=== PATIENT | female | born 1995 | race Caucasian/White ===

== ENCOUNTER 2024-12-01 13:06 | Emergency (ER) | payer OTHER, SELFPAY ==
[2024-12-01 13:14] VITALS: BP 112/74; PULSE 80; RESP 16; TEMP 36.3; O2SAT 99; BMI 18.0
--- NOTE | 2024-12-01 13:14 | ED.GENADULT ---
HPI - General Adult General Chief complaint: Recheck/Abnormal Lab/Rx Stated complaint: pt states potassium low ETOH withdrawal Time Seen by Provider: 12/01/24 14:20 Source: patient and other ([facility] ED record from 11/27/2024) Mode of arrival: ambulatory Limitations: no limitations History of Present Illness ED Provider: Dr. Ethan Sanchez HPI narrative: 29-year-old female with a past medical history of alcohol use disorder, anxiety, depression, asthma, 5 weeks presenting to the emergency room today for evaluation of alcohol withdrawal, nausea and vomiting. Patient states that a proximally 2 or 3 weeks prior to evaluation she developed nausea and vomiting and was having difficulty eating and drinking. Patient states she was drinking at least 6 beers per day but was unable to drink secondary to her symptoms. She did a home test and was positive. She was seen at [facility] Emergency Department on 11/27/2024 for alcohol withdrawal syndrome with a CIWA of 9 and was found to be 5 weeks on ultrasound. Patient's CIWA scale at that time was 9. She was treated for alcohol withdrawal and vomiting secondary to . Her potassium was 2.8 and this was repleted orally. She was also given Zofran for nausea and diazepam 10 minute IV for alcohol withdrawal.. She states she did feel better after leaving [facility] however she has continued to have nausea, vomiting, weakness, shakiness, sweats and dizziness. Patient states that yesterday she did drink 4 beers and 1 nip. She was discharged with a prescription for Zofran she states that this was not helping her nausea or vomiting. The patient does want to get help with your alcohol use disorder in his requesting evaluation for detox. Related Data Previous Rx's ?Medication ?Instructions ?Recorded diazepam 5 mg tablet (Valium) 5 mg PO TID For alcohol withdrawal 12/01/24 3 days #9 tabs diphenhydramine HCl 25 mg capsule 50 mg (2 x 25 mg) PO Q6H PRN 12/01/24 headache, nausea, vomiting #20 caps metoclopramide HCl 10 mg tablet 10 mg PO Q6H PRN nausea and 12/01/24 (Reglan) vomiting #14 tabs Allergies Allergy/AdvReac Type Severity Reaction Status Date / Time No Known Allergies Allergy Verified 12/01/24 13:16 Review of Systems Review of Systems: Yes all other systems are reviewed and are negative [facility] Past Medical History [facility] Narrative: Social history: The patient smokes 2-3 packs of cigarettes per day times 15 years, she has not been able to smoke x2 weeks. She states that normally she drinks it looks 6 beers per day and yesterday she drank 4 beers and 1 nips. She smokes marijuana 5 times a day but states she has not been able to smoke x2 weeks Social History Social History Advance Directives: No Advance Directives Information Provided: Yes Do you have a plan to hurt others: No Plan Physical Exam ED Vital Signs: Vital Signs - 24 hr 12/01/24 13:14 12/01/24 13:58 12/01/24 16:27 Temperature 97.3 F 98.2 F Pulse Rate 80 66 94 Respiratory Rate 16 16 13 Blood Pressure 112/74 109/60 103/65 Pulse Oximetry 99 99 100 Oxygen Delivery Method Room Air Room Air Room Air 12/01/24 18:00 Temperature 98.1 F Pulse Rate 73 Respiratory Rate 14 Blood Pressure 112/73 Pulse Oximetry 99 Oxygen Delivery Method Room Air BMI result Body Mass Index 18.0 Vital signs were normal. Exam: General: Awake, alert in no distress Head: Normocephalic, atraumatic EENT: PERRL, Lids normal, sclera normal, conjunctiva normal, nose normal , ears normal, throat without erythema or exudates Neck: Supple, no adenopathy Lung: breath sounds symmetric, no wheezing, rales or rhonchi Chest: symmetric movement, nontender Heart: regular rate and rhythm, normal S1, S2 no murmurs or rubs Abdomen: soft, mild to moderate epigastric tenderness, no suprapubic tenderness, nondistended, normal bowel sounds Back: no vertebral tenderness, no CVAT Extremities: no deformities, moves all extremities symmetrically Neuro: Awake, alert, oriented, normal speech, cranial nerves intact, moves all extremities symmetrically Psych: Pleasant, cooperative, appears to be anxious Course Course Course Narrative: This is a Rapid Medical Examination (RME) performed by Martín Molina PA-C in triage. Full HPI, ROS, assessment and treatment plan per primary provider in the Main ED. Hx: 29 yo F here w/ concerns of low potassium. seen at [facility] on Friday for etoh withdrawal - found out she was while there (approx 1 mo 1 wk), also found to have low potassium. discharged. f/u w/ PCP yesterday, told to come to ED for further management of low potassium. reports weakness and dizziness. admits to drinking 2 beers and 1 nip yesterday. vomiting, believes she is still withdrawing. typically drinks 6 beers a day. Plan: labs, ekg Medications Administered Discontinued Medications Generic Name Dose Route Start Last Admin Trade Name Norberto PRN Reason Stop Dose Admin Diazepam 5 mg 12/01/24 15:51 12/01/24 16:13 Diazepam 10 Mg/2 Ml Cartridge IVPUSH 12/01/24 15:52 5 mg STAT STA Administration Diphenhydramine HCl 50 mg 12/01/24 16:05 12/01/24 16:14 Diphenhydramine Hcl 50 Mg/Ml Vial IVPUSH 12/01/24 16:06 50 mg ONCE STA Administration Sodium Chloride 1,000 mls @ 999 mls/hr 12/01/24 15:51 12/01/24 17:15 Ns IV 12/01/24 16:51 Infused .Q1H1M STA Infusion Metoclopramide HCl 10 mg 12/01/24 16:05 12/01/24 16:14 Metoclopramide Hcl 10 Mg/2 Ml Vial IVPUSH 12/01/24 16:06 10 mg ONCE STA Administration Medical Decision Making Medical Decision Making MDM Narrative: 29-year-old female with a past medical history of alcohol use disorder, anxiety, depression, asthma, 5 weeks presenting to the emergency room today for evaluation of alcohol withdrawal, nausea and vomiting. Patient states that a proximally 2 or 3 weeks prior to evaluation she developed nausea and vomiting and was having difficulty eating and drinking. Patient states she was drinking at least 6 beers per day but was unable to drink secondary to her symptoms. She did a home test and was positive. She was seen at [facility] Emergency Department on 11/27/2024 for alcohol withdrawal syndrome with a CIWA of 9 and was found to be 5 weeks on ultrasound. Patient's CIWA scale at that time was 9. She was treated for alcohol withdrawal and vomiting secondary to . Her potassium was 2.8 and this was repleted orally. She was also given Zofran for nausea and diazepam 10 minute IV for alcohol withdrawal.. She states she did feel better after leaving [facility] however she has continued to have nausea, vomiting, weakness, shakiness, sweats and dizziness. Patient states that yesterday she did drink 4 beers and 1 nip. She was discharged with a prescription for Zofran she states that this was not helping her nausea or vomiting. The patient does want to get help with your alcohol use disorder in his requesting evaluation for detox. Vital signs were normal. Exam revealed suprapubic tenderness and anxiety otherwise was unremarkable. Differential diagnosis: ?Includes but is not limited to alcohol withdrawal, vomiting related to , anxiety, anemia, electrolyte abnormalities Course: 16:08 My independent interpretation patient's laboratory evaluation is as follows: CBC was normal. Potassium was normal at 3.5. Chloride elevated 109. Bicarb low 19-most likely secondary to her vomiting. LFTs were normal. Lipase pending. Quantitative beta-hCG was appropriately elevated at 48,932 eight thousand nine hundred thirty two. Patient's CIWA score was 11-(mildly anxious, slight increased agitation, very mild headache, nausea with dry heaves). I think that most of these symptoms are probably more related to her nausea and vomiting secondary to but may also be related some mild alcohol withdrawal. Therefore I ordered diazepam 5 mg IV for withdrawal. I also ordered Reglan 10 mg and Benadryl 25 mg IV for her nausea and vomiting. She will speak treated with normal saline x1 L. 18:44 Patient is feeling better after the above treatment. Patient is able to drink fluid. At this point I think she is medically cleared to see the recovery team for possible detox placement. 19:44 Patient states she is feeling better. At this time she does not want to talk to our recovery team and states she has some information from [facility] regarding a day treatment program for detox and she is going to contact this program. The patient was able to eat and drink crackers and fluid without vomiting. Patient will be discharged home with prescriptions for Reglan and Benadryl for nausea and vomiting. I also prescribed Valium 5 mg 3 times a day for 3 days to try to help with her alcohol withdrawal. She was given printed and verbal instructions and discharged home. Admission/Observation Consideration of admission/observation: Escalation of care including admission/observation considered (Yes) Lab Data MDM Lab Attestation statement: I reviewed the patient's lab results. 12/01/24 13:27 12/01/24 13:27 Labs: Lab Results 12/01/24 12/01/24 12/01/24 Range/Units 13:27 13:57 16:06 WBC 11.8 H (4.8-10.8) X10*3/uL RBC 4.05 L (4.20-5.50) X10*6/uL Hgb 13.7 (12.0-16.0) g/dl Hct 37.4 (37.0-47.0) % MCV 92.3 (80.0-98.0) fL MCH 33.8 H (27.0-33.0) pg MCHC 36.6 H (31.0-35.0) g/dl RDW 11.9 (11.0-16.0) % Plt Count 300 (160-400) X10*3/uL MPV 8.6 L (9.4-12.3) fL Immature Gran % (Auto) 0.3 (0.0-0.4) % Neut % (Auto) 72.1 (45-73) % Lymph % (Auto) 18.8 L (20-40) % Pitt % (Auto) 7.7 (2-11) % Eos % (Auto) 0.7 (0-4) % Baso % (Auto) 0.4 (0-2) % Lymph # (Auto) 2.2 (1.2-4.9) X10*3/uL Pitt # (Auto) 0.9 (0.1-1.2) X10*3/uL Eos # (Auto) 0.1 (0.0-0.4) X10*3/uL Baso # (Auto) 0.1 (0.0-0.2) X10*3/uL Abs Immat Gran (auto) 0.04 H (0.00-0.03) X10*3/uL Absolute Neuts (auto) 8.5 H (2.0-8.3) x10*3/uL Absolute Nucleated RBC 0.000 (0.0-0.012) X10*3/uL Nucleated RBC % (auto) 0.0 (0.0-0.2) /100WBC Sodium 136 (135-145) mmol/L Potassium 3.5 (3.3-5.1) mmol/L Chloride 109 H (96-108) mmol/L Carbon Dioxide 19 L (22-29) mmol/L Anion Gap 12 (12-20) BUN 6 L (9-16) mg/dL Creatinine 0.55 (0.5-1.4) mg/dL Estim Creat Clear Calc 111.4 Estimated GFR > 60 Random Glucose 93 (60-115) mg/dL Calcium 9.0 (8.4-10.2) mg/dL Magnesium 1.9 (1.6-2.6) mg/dL Total Bilirubin 0.4 (0.0-1.0) mg/dL AST 17 (5-31) U/L ALT 14 (0-31) U/L Alkaline Phosphatase 41 (39-117) U/L Total Protein 6.9 (6.5-8.0) g/dL Albumin 4.3 (3.5-5.0) g/dL Lipase 18 (8-78) U/L Beta HCG, Quant 25687 mIU/mL Urine Color Yellow Urine Appearance Turbid Urine pH 8.0 (5.0-9.0) Ur Specific [place] 1.020 (1.005-1.025) Urine Protein Negative (Neg-Trace) mg/dL Urine Glucose (UA) Negative (Negative) mg/dL Urine Ketones 15 (Negative) mg/dL Urine Blood Negative (Negative) Urine Nitrite Negative (Negative) Ur Leukocyte Esterase Trace H (Negative) Urine RBC 0-2 (0-2) /HPF Urine WBC 0-5 (0-5) /HPF Ur Squamous Epith Cells 0-2 (0-2) /HPF Urine Bacteria None Seen (None Seen) Hyaline Casts 0-2 (0-2) /LPF Urine Opiates Screen Not Detected (Not Detect) Ur Buprenorphine Scrn Not Detected (Not Detect) ng/mL Ur Oxycodone Screen Not Detected (Not Detect) ng/mL Urine Methadone Screen Not Detected (Not Detect) ng/mL Urine Fentanyl Screen Not Detected (Not Detect) Ur Barbiturates Screen Not Detected (Not Detect) Ur Phencyclidine Scrn Not Detected (Not Detect) Ur Amphetamines Screen Not Detected (Not Detect) U Benzodiazepines Scrn POSITIVE H (Not Detect) Urine Cocaine Screen Not Detected (Not Detect) U Marijuana (THC) Screen POSITIVE H (Not Detect) Ethyl Alcohol < 10 mg/dL External Record Review External record reviewed: Outside ED record ([facility] ED record 11/27/2024) Prescription Management I considered prescription management with: Other (Antiemetics: Reglan and Benadryl, benzodiazepine for withdrawal: Valium) Chronic Conditions Patient?s care impacted by: Other (Alcohol use disorder) Discharge Plan Discharge Clinical Impression: Vomiting affecting , Alcohol use disorder, Alcohol withdrawal, Volume depletion, First trimester Patient Disposition: Home, Self-Care Instructions: at 11 to 14 Weeks (ED) Additional Instructions: Your blood work was unremarkable. Your test was positive in his consistent with your 1st trimester . For nausea and vomiting and want you to take the following to medications together: Reglan (metoclopramide) 10 mg, 1 pill every 6 hours as needed Benadryl (diphenhydramine) 25 mg, 1 pill every 6 hours as needed For alcohol withdrawal I want you to take the following medication: Valium (diazepam) 5 mg, 1 pill 3 times a day for 3 days. While your taking this medication stopped drinking alcohol and this should help with your withdrawal symptoms. For the next 24 hours, stay on a JOSIAH diet (bananas, rice, applesauce, tea and toast). Follow-up with the OBGYN service at [facility] for further care of your . Follow-up with your doctor in 2 days. Please return to the emergency department if your symptoms get worse or if you develop any symptoms that are concerning to you. Prescriptions: New diphenhydramine HCl 25 mg capsule 50 mg PO Q6H PRN (Reason: headache, nausea, vomiting) Qty: 20 0RF metoclopramide HCl [Reglan] 10 mg tablet 10 mg PO Q6H PRN (Reason: nausea and vomiting) Qty: 14 0RF diazepam [Valium] 5 mg tablet 5 mg PO TID 3 Days Qty: 9 0RF Print Language: Irish
--- NOTE | 2024-12-01 13:16 | ECG_ITS ---
Test Reason : WEAKNESS Blood Pressure : */* mmHG Vent. Rate : 73 BPM Atrial Rate : 73 BPM P-R Int : 132 ms QRS Dur : 74 ms QT Int : 362 ms P-R-T Axes : 44 72 39 degrees QTcB Int : 398 ms Normal sinus rhythm with sinus arrhythmia Normal ECG When compared with ECG of 18-Dec-2006 17:44, Decrease in ventricular rate Referred By: Marisela Molina Electronically Signed By: LAYA AGUILAR
[2024-12-01 13:33] LABS: MANUAL DIFF FLAG NO
[2024-12-01 13:34] LABS: Hematocrit 37.4 % (37.0-47.0); Hemoglobin 13.7 g/dl (12.0-16.0); Imm Gran Abs Auto 0.04 X10*3/uL (0.00-0.03); Imm Gran Pct Auto 0.3 % (0.0-0.4); Lymphocytes Absolute Auto 2.2 X10*3/uL (1.2-4.9); Mean Corpuscular HGB Conc 36.6 g/dl (31.0-35.0); Mean Corpuscular Hemoglobin 33.8 pg (27.0-33.0); Mean Corpuscular Volume 92.3 fL (80.0-98.0); NRBC Abs Auto 0.000 X10*3/uL (0.0-0.012); NRBC Pct Auto 0.0 /100WBC (0.0-0.2); Platelet Count 300 X10*3/uL (160-400); Red Blood Count 4.05 X10*6/uL (4.20-5.50); White Blood Count 11.8 X10*3/uL (4.8-10.8)
[2024-12-01 13:58] VITALS: BP 109/60; PULSE 66; RESP 16; TEMP 36.8; O2SAT 99
[2024-12-01 14:09] LABS: Alanine Aminotransferase 14 U/L (0-31); Albumin Level 4.3 g/dL (3.5-5.0); Alkaline Phosphatase 41 U/L (39-117); Anion Gap 12 (12-20); Aspartate Amino Transferase 17 U/L (5-31); Blood Urea Nitrogen 6 mg/dL (9-16); Calcium 9.0 mg/dL (8.4-10.2); Carbon Dioxide 19 mmol/L (22-29); Chloride 109 mmol/L (96-108); Creatinine Clr Calc Pharmacy 111.4; Estimated Glomerular Filt Rate > 60; Magnesium 1.9 mg/dL (1.6-2.6); Potassium 3.5 mmol/L (3.3-5.1); Sodium 136 mmol/L (135-145); Total Protein 6.9 g/dL (6.5-8.0)
[2024-12-01 14:11] LABS: Appearance Urine Turbid; Glucose Urine UA Negative (Negative); PH 8.0 (5.0-9.0); Specific Gravity - Urine 1.020 (1.005-1.025); UMIC TRIGGER UACC YES
[2024-12-01 14:20] LABS: Cannabinoid Screen Urine POSITIVE (Not Detect)
--- NOTE | 2024-12-01 15:53 | PC.NURSE ---
Dr. Sanchez to bedside. Plan to obtain IV access, medicate for nausea & withdrawal symptoms. Awaiting orders. Patient aware & agreeable with plan of care. Care ongoing by this RN & Ese Sandhu LPN.
[2024-12-01] MEDS: diazePAM 10 MG/2 ML CARTRIDGE 5 MG IVPUSH (16:13)
[2024-12-01 16:27] VITALS: BP 103/65; PULSE 94; RESP 13; O2SAT 100
[2024-12-01 17:03] LABS: Lipase 18 U/L (8-78)
[2024-12-01 18:00] VITALS: BP 112/73; PULSE 73; RESP 14; TEMP 36.7; O2SAT 99
[2024-12-01 20:16] VITALS: BP 112/73; PULSE 73; RESP 14; TEMP 36.7; O2SAT 99
== END 2024-12-01 20:16 | disposition home or self-care (01) ==
PROVIDERS: Physician Assistant Medical; Emergency Provider Emergency Medicine Emergency Medical Services; PCP Nurse Practitioner Family
DX: O21.1 Hyperemesis gravidarum with metabolic disturbance (principal); F10.939 Alcohol use, unspecified with withdrawal, unspecified; Y90.0 Blood alcohol level of less than 20 mg/100 ml; I49.8 Other specified cardiac arrhythmias; Z3A.12 12 weeks gestation of pregnancy; Z79.899 Other long term (current) drug therapy
CPT/HCPCS: 36415; 80053; 80307; 81001; 83690; 83735; 84702; 85025; 93005; 96361; 96374; 96375; 99284; J1200; J2765; J3360

== ENCOUNTER → 2024-12-01 13:16 | Outpatient (BNV) | payer OTHER, SELFPAY | PROVIDERS: Emergency Provider Emergency Medicine Emergency Medical Services; PCP Nurse Practitioner Family; Visit Provider Internal Medicine | DX: R53.1 Weakness (principal) | CPT/HCPCS: 93010 ==